=== PATIENT | male | born 1955 | race Caucasian/White ===

== ENCOUNTER 2019-04-30 21:57 | Observation (INO) ==
[2019-04-30 22:18] LABS: BASOPHILS # (AUTO) 0.08 10*3/UL; BASOPHILS % (AUTO) 0.9 % (0-1); EOSINOPHILS # (AUTO) 0.67 10*3/UL; EOSINOPHILS % (AUTO) 7.9 % (0-8); Hematocrit [HCT] 45.6 % (42.0-52.0); Hemoglobin [HGB] 15.8 g/dL (14.0-18.0); LYMPHOCYTES # (AUTO) 2.56 10*3/uL; MEAN CORPUSCULAR HGB CONC 34.6 g/dL (33-37); MEAN CORPUSCULAR VOLUME 86.2 FL (80-90); MEAN PLATELET VOLUME 11.3 FL (7.4-12.2); MONOCYTES # (AUTO) 0.65 10*3/UL (0.3-0.8); MONOCYTES % (AUTO) 7.7 % (5-15); NEUTROPHILS # (AUTO) 4.52 10*3/UL; NEUTROPHILS % (AUTO) 53.2 % (50-80); RED BLOOD COUNT 5.29 10^6/uL (4.70-6.10)
[2019-04-30 22:23] LABS: PLATELET MORPHOLOGY COMMENT NORMAL MORPHOLOGY (NORM); RBC MORPHOLOGY COMMENT NORMAL MORPHOLOGY (NORM); WBC MORPHOLOGY COMMENT NORMAL MORPHOLOGY (NORM)
[2019-04-30 22:25] LABS: BLOOD UREA NITROGEN 16 mg/dL (7-22); BUN/CREATININE RATIO 14.54 (6-20); SERUM ALBUMIN 4.3 g/dL (3.5-4.8)
[2019-05-01] MEDS ORDERED: CALCIUM CARBONATE 500 MG (TUMS) CHEWABLE TABLET PO PRN (00:58)
[2019-05-01] MEDS ORDERED: NITROGLYCERIN 0.4 MG SL TAB (BOTTLE OF 3) SL PRN (00:58)
[2019-05-01] MEDS ORDERED: LIDOCAINE W/ SODIUM BICARB 0.5 ML SYR SUBD PRN (00:58)
[2019-05-01] MEDS ORDERED: Influenza 19-20 Vaccine (6mo+) 60 MCG/0.5 ML SYRINGE IM ONE (01:40)
[2019-05-01 01:41] VITALS: RESP 18
[2019-05-01 05:28] LABS: CHOL/HDL RATIO 3.34 RATIO (0-4.0)
[2019-05-01] MEDS ORDERED: Simvastatin Tab 10 MG TAB PO SCH ×2 (09:00→21:00)
[2019-05-01] MEDS ORDERED: ALLOPURINOL 100 MG TABLET PO SCH (09:00)
[2019-05-01] MEDS ORDERED: ASPIRIN EC 81 MG TABLET PO SCH (09:00)
[2019-05-01] MEDS ORDERED: Sotalol Tab 80 MG TAB PO SCH ×2 (09:00)
[2019-05-01 13:04] VITALS: BP 145/76; TEMP 97.2; O2SAT 93
== END 2019-05-01 16:45 | disposition short-term general hospital (02) ==
LOC: ER 21:57 → MED/SURG 21:57
PROVIDERS: ADMIT Internal Medicine; ATTEND Internal Medicine